=== PATIENT | male | born 1995 | race African-American/Black ===

== ENCOUNTER 2016-03-08 23:55 | Emergency (ER) ==
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
[2016-03-09 00:38] LABS: MANUAL DIFF NEEDED? NO
[2016-03-09 00:44] LABS: BASO% 0.3 % (0.0-0.8); EOS# 0.03 X1000 (0.0-0.7); EOS% 0.4 % (0.0-10.0); HEMATOCRIT 45.7 % (42.0-52.0); HEMOGLOBIN 14.9 g/dL (14.0-18.0); LYMPH# 1.66 X1000 (1.2-3.4); LYMPH% 21.8 % (20.5-51.1); MCH 26.8 PG (27-31); MCHC 32.6 g/dL (33-37); MONO# 0.61 X1000 (0.11-0.59); MPV 11.7 FL (7.4-10.4); NEUT% 69.5 % (42.2-75.2); PLT 211 X1000 (130-400); RBC 5.57 XMIL (4.7-6.1)
[2016-03-09 01:04] LABS: AGAP 23; ALBUMIN 5.3 g/dL (3.5-5.0); ALKALINE PHOSPHATASE 91 U/L (32-122); BUN 15 mg/dL (8-22); CALCIUM 10.2 mg/dL (8.8-10.2); CHLORIDE 102 mmol/L (98-107); COSMO 296; GOT 27 U/L (10-34); GPT 13 U/L (10-44); POTASSIUM 3.4 mmol/L (3.5-5.1); SODIUM 147 mmol/L (136-145); TCO2 22 mmol/L (25-35); TOTAL BILIRUBIN 0.41 mg/dL (0.20-1.00); TOTAL PROTEIN 8.8 g/dL (6.3-8.3)
[2016-03-09 01:10] LABS: UR AMPHETAMINES QUAL NONE DETECTED (NONE DETECT); UR BARBITUATES QUAL NONE DETECTED (NONE DETECT); UR BENZODIAZEPIN QUAL NONE DETECTED (NONE DETECT); UR CANNABINOIDS QUAL PRESUMPTIVE POSITIVE (NONE DETECT); UR COCAINE QUAL NONE DETECTED (NONE DETECT); UR METHADONE QUAL NONE DETECTED (NONE DETECT); UR OPIATES QUAL NONE DETECTED (NONE DETECT); UR OXYCODONE QUAL NONE DETECTED (NONE DETECT); UR PCP QUAL NONE DETECTED (NONE DETECT)
[2016-03-09 01:58] LABS: ACETAMINOPHEN < 1.2 ug/mL (10-30)
[2016-03-09 02:08] VITALS: BP 124/77
--- NOTE | 2016-03-09 05:27 | EKG Report ---
Test Performed on : 03/09/2016 00:56:50 AM Test Reason : Suspected Overdose Blood Pressure : / mmHG Vent. Rate : 111 BPM Atrial Rate : 111 BPM P-R Int : 142 ms QRS Dur : 084 ms QT Int : 330 ms P-R-T Axes : 077 075 064 degrees QTc Int : 448 ms Sinus tachycardia. Nonspecific ST and T wave abnormality Abnormal ECG No previous ECGs available Unconfirmed Result
== END 2016-03-09 02:13 | disposition home or self-care (01) ==
LOC: EDBD → ED 23:55
DX: F12.10 Cannabis abuse, uncomplicated (principal); F19.10 Other psychoactive substance abuse, uncomplicated; F17.210 Nicotine dependence, cigarettes, uncomplicated; Z71.6 Tobacco abuse counseling
CPT/HCPCS: 51702; 80053; 85025; 93005; 99284; G0480

== ENCOUNTER 2016-03-09 23:24 | Emergency (ER) ==
[2016-03-09] MEDS ORDERED: BENADRYL IV ONE (23:27)
[2016-03-09] MEDS ORDERED: ATIVAN IV ONE (23:30)
[2016-03-09] MEDS ORDERED: BENADRYL ONE (23:33)
[2016-03-09 23:34] LABS: MANUAL DIFF NEEDED? NO
--- NOTE | 2016-03-09 23:37 | ED EKG INTERP ---
EKG Interpretation - EKG Time of EKG reading by physician:: 23:31 EKG Read and Signed by:: Saw Galarza EKG Interpretation (*Must complete 3 of following elements*): Abnormal ( borderline) Rate: 134 Rhythm: sinus tachycardia [place]: normal QRS: LVH (minimum voltage) TN Interval: normal Comments: borderline Attestation - Scribe Verification/Attestation Scribe:: Jose Manuel Giullen Acting as Scribe for:: Saw Galarza Scribe documention review:: This chart was documented by a scribe and accurately reflects the service the provider performed and the decisions made by the provider.
--- NOTE | 2016-03-09 23:43 | PROVIDER DOCUMENTATION ---
HPI-Neurological Disorder - General Chief Complaint: Seizure Stated Complaint: AMS Time Seen by Provider: 03/09/16 23:27 Source: patient Allergies/Adverse Reactions: Patient Allergies Allergy/AdvReac Type Severity Reaction Status Date / Time Penicillins Allergy Unknown Unknown Verified 03/09/16 00:22 - History of Present Illness-Neuro Nature of Presenting Problem: 20 y/o AAF c/o "muscles drawing up." He was seen at yesterday for spice use with aggressive behaviors. Denies taking anything since then, but has been having where he has muscle spasms where they contract and he has no control over them all day today, in his legs, arms and mouth. He denies spice use yesterday or today, but says that when he took the weed, he immediately became aggressive and had no control over his actions. Denies chest pain, abdominal pain, nausea, vomiting or muscle aches. Denies sob or headache, changes in vision or blurry vision. Does not really know what took place at yesterday, but from previous records they pulled some labs, Haldol 10 mg IV and he was d/c home. Review of Systems - Adult - REVIEW OF SYSTEMS - ADULT Constitutional: reports: no symptoms reported. denies: chills, fever, fatique Eyes: reports: no symptoms reported. denies: blurred vision, double vision, eye pain Ears, Nose, Mouth & Throat: reports: no symptoms reported. denies: ear pain, nose pain, throat pain Cardiovascular: reports: no symptoms reported. denies: chest pain, palpitations Respiratory: reports: no symptoms reported. denies: cough, shortness of breath , wheezing Gastrointestinal: reports: no symptoms reported. denies: abdominal pain, diarrhea, nausea, vomiting Genitourinary: reports: no symptoms reported. denies: dysuria, discharge, frequency, incontinence Musculoskeletal: reports: see HPI, muscle aches. denies: muscle weakness, neck pain Integumentary: reports: no symptoms reported. denies: rash Neurological: reports: no symptoms reported. denies: ataxia, dizziness/vertigo , headache/migraines Psychiatric: reports: no symptoms reported Endocrine: reports: no symptoms reported Hematologic/Lymphatic: reports: no symptoms reported Allergic/Immunologic: reports: no symptoms reported All Other Systems: Reviewed and Negative Past History - Adult - PAST MEDICAL HISTORY-ADULT Review of Records: reports: Old Records Reviewed, Nursing Assessment Review, Medications Reviewed, Social history reviewed & non-contributory. Major Childhood Illnesses: reports: denies history Cardiovascular: reports: denies history Respiratory: reports: denies history Gastrointestinal: reports: denies history Genitourinary: reports: denies history Musculoskeletal: reports: denies history Neurological: reports: denies history Endocrine/Immune: reports: denies history Other Conditions: reports: denies history - PRIOR SURGERIES/PROCEDURES Surgical/Procedure History: reports: appendectomy - IMMUNIZATION STATUS Childhood Immunizations: See Nurse Assessment Flu Vaccine: See Nurse Assessment - FAMILY HISTORY Family History: reviewed, not pertinent - SOCIAL HISTORY Substance Use: marijuana Physical Exam- Neurological - Physical Exam-Neuro Initial Vital Signs Reviewed: Yes General Appearance: appears well, alert, no apparent distress Eye Exam: bilateral eye: normal inspection, PERRL (slowly reactive, 3mm ), EOMI HENMT: normocephalic/atraumatic, moist mucous membranes, normal ENT inspection Head Injury: no evidence of injury Neck: non-tender, full range of motion, supple, normal inspection Respiratory: chest non-tender, lungs clear, normal breath sounds, no pleuratic chest pain, no respiratory distress, no accessory muscle use. negative: respiratory distress, decreased breath sounds, accessory muscle use, crackles, rales, rhonchi Cardiovascular: normal peripheral pulses, no edema, no gallop, no JVD, no murmur , tachycardia Abdominal Exam: normal bowel sounds, non tender, soft, no organomegaly, no pulsatile mass. negative: abdominal bruit, abnormal bowel sounds, distended, guarding, rigid, rebound, tenderness Extremity: normal gait, other (patient having obvious muscle spasms with tetany that occur then release in the face, arms and legs, lasting approx 10 seconds each) arc welder apprentice Exam: normal hearing, normal speech, PERRL Coordination/Gait: normal gait Motor/Sensory: no motor deficit, no sensory deficit Neurologic: arc welder apprentice II-XII nml as tested, no motor/sensory deficits Integumentary: normal color, normal turgor, warm/dry Psych/Mental Status: AL, normal mood/affect, normal thought content, normal thought process, oriented x 3 - Glascow Coma Scale Best Eye Response: (4) open spontaneously Best Verbal Response: (5) oriented Best Motor Response: (6) obeys commands Progress - PLAN OF CARE/RESULTS Progress/Plan/Lab Results: Vital Signs Temp Pulse Resp BP Pulse Ox 03/10/16 00:55 129 H 28 H 167/86 99 03/09/16 23:37 133 H 20 158/88 98 03/09/16 23:26 98.6 F 145 H 36 H 134/82 99 Penicillins Allergy (Unknown, Verified 03/09/16 00:22) Unknown No Home Medications 03/09/16 Laboratory 03/10/16 03/10/16 03/09/16 00:45 00:45 23:28 WBC 5.90 RBC 5.45 Hgb 14.5 Hct 43.3 MCV 79.4 L MCH 26.6 L MCHC 33.5 RDW Std Deviation 13.0 Plt Count 218 MPV 11.6 H Immature Gran % (Auto) 0.0 Neut % (Auto) 60.3 Lymph % (Auto) 26.8 [place] % (Auto) 12.5 H Eos % (Auto) 0.2 Baso % (Auto) 0.2 Immature Gran # (Auto) 0.00 Neut # (Auto) 3.56 Lymph # (Auto) 1.58 [place] # (Auto) 0.74 H Eos # (Auto) 0.01 Baso # (Auto) 0.01 Sodium Potassium Chloride Carbon Dioxide Anion Gap BUN Creatinine Estimated GFR/1.73 m2 BUN/Creatinine Ratio Glucose Calculated Osmolality Calcium Total Bilirubin AST ALT Alkaline Phosphatase Creatine Kinase Total Protein Albumin Globulin Albumin/Globulin Ratio Urine Source VOIDED Urine Color YELLOW Urine Clarity CLEAR Urine pH 6.5 Ur Specific Raymond 1.020 Urine Protein 1+(30 mg/dL) A Urine Ketones NEGATIVE Urine Blood NEGATIVE Urine Nitrite NEGATIVE Urine Bilirubin NEGATIVE Urine Urobilinogen 1+(1 mg/dL) Urine Microscopic RBC <10 Urine WBC TRACE A Urine Microscopic WBC <10 Ur Epithelial Cells <10 Urine Bacteria 3+ Urine Glucose TRACE(50 mg/dL) A Urine Opiates Screen NONE DETECTED Ur Oxycodone Screen NONE DETECTED Urine Methadone Screen NONE DETECTED Ur Barbituates Screen NONE DETECTED Ur Tricyclics Screen NONE DETECTED Ur Phencyclidine Scrn NONE DETECTED Ur Amphetamines Screen NONE DETECTED U Methamphetamines Scrn NONE DETECTED Urine MDMA Screen NONE DETECTED U Benzodiazepines Scrn NONE DETECTED Urine Cocaine Screen NONE DETECTED U Cannabinoids Screen PRESUMPTIVE POSITIVE A 03/09/16 23:28 WBC RBC Hgb Hct MCV MCH MCHC RDW Std Deviation Plt Count MPV Immature Gran % (Auto) Neut % (Auto) Lymph % (Auto) [place] % (Auto) Eos % (Auto) Baso % (Auto) Immature Gran # (Auto) Neut # (Auto) Lymph # (Auto) [place] # (Auto) Eos # (Auto) Baso # (Auto) Sodium 139 Potassium 3.8 Chloride 102 Carbon Dioxide 24 L Anion Gap 13 BUN 10 Creatinine 1.1 Estimated GFR/1.73 m2 > 60 BUN/Creatinine Ratio 9 Glucose 158 H Calculated Osmolality 280 Calcium 9.6 Total Bilirubin 0.50 AST 36 H ALT 13 Alkaline Phosphatase 85 Creatine Kinase 1271 H Total Protein 8.1 Albumin 4.7 Globulin 3.0 Albumin/Globulin Ratio 1.0 Urine Source Urine Color Urine Clarity Urine pH Ur Specific Raymond Urine Protein Urine Ketones Urine Blood Urine Nitrite Urine Bilirubin Urine Urobilinogen Urine Microscopic RBC Urine WBC Urine Microscopic WBC Ur Epithelial Cells Urine Bacteria Urine Glucose Urine Opiates Screen Ur Oxycodone Screen Urine Methadone Screen Ur Barbituates Screen Ur Tricyclics Screen Ur Phencyclidine Scrn Ur Amphetamines Screen U Methamphetamines Scrn Urine MDMA Screen U Benzodiazepines Scrn Urine Cocaine Screen U Cannabinoids Screen Orders Category Date Time Status CBC WITH ELECTRONIC DIFF [HEME] Stat Lab 03/09/16 23:28 Completed CK TOTAL [CHEM] Stat Lab 03/09/16 23:28 Completed COMPREHENSIVE METABOLIC PANEL [CHEM] Stat Lab 03/09/16 23:28 Completed UDS [URINE DRUG SCREEN PL] Stat Lab 03/10/16 00:[address] W/POSS RFLX CULT [URINALYSIS] Stat Lab 03/10/16 00:45 Completed URINE CULTURE [RM] Routine Lab 03/10/16 01:30 Ordered 0.9% Sodium Chloride Inj [Ns] 1,000 ml Med 03/09/16 23:46 Discontinued IV 999 mls/hr 0.9% Sodium Chloride Inj [Ns] 1,000 ml Med 03/10/16 00:45 Active IV 999 mls/hr 0.9% Sodium Chloride Inj [Ns] 1,000 ml Med 03/10/16 01:21 Active IV 999 mls/hr Diphenhydramine [Benadryl] Med 03/09/16 23:33 Discontinued 50 mg .ROUTE .STK-MED ONE Diphenhydramine [Benadryl] Med 03/09/16 23:27 Discontinued 50 mg IV NOW ONE Labetalol Med 03/10/16 00:01 Discontinued 10 mg IV NOW ONE Lorazepam [Ativan] Med 03/10/16 00:02 Discontinued 1 mg IV NOW ONE Lorazepam [Ativan] Med 03/10/16 00:14 Discontinued 1 mg IV NOW ONE Lorazepam [Ativan] Med 03/09/16 23:30 Discontinued 2 mg IV NOW ONE EKG [EKG] Stat Ther 03/09/16 23:30 Ordered Labetolol was not given Discussed patient with Dr. Mcgrath who reviewed chart, labs and vitals. Agrees with treatment, disposition and plan - REASSESSMENT Reassessment #1 Time Reassessed: 01:18 (HR to 110's in the room. He is now asleep, no longer having dystonic reactions. Family members to bedisde. He was just released from being in long term for 3 years this past (2 days ago). They did not know he was even taking drugs, and don't know if he could have done anything today) Status: improving Departure - Departure Time of Disposition Order: 01:34 DIAGNOSIS: Substance abuse, Acute dystonic reaction due to drugs Disposition: HOME 01 Certified Medical Emergency: Emergent Condition: Stable Additional Instructions: Refrain from taking any more drugs ED Follow Up Instructions: You have been treated by a care provider in the Emergency Department. These instructions are being provided to you so you can have an understanding of how to care for yourself upon discharge. Upon discharge from the Emergency Department, you are responsible for making arrangements for follow-up care by a physician of your choice. Take all prescribed medications as directed. Return to the Emergency Department immediately for any new or worsening symptoms. You may call the Physician Referral phone number at [phone] to obtain a list of Physicians who are taking new patients. . Prescriptions: Diphenhydramine [Benadryl] 25 mg PO Q4-6H PRN PRN #20 capsule PRN Reason: Itching Referrals: Davey Julio MD [STAFF PHYSICIAN] - None,PCP [Primary Care Provider] - Forms: Return to School/Parent Work Attestation - Physician/ Mid-level Attestation Patient care was provided by Mid-level provider (MACHINERY MECHANIC/PA):: Yes Mid-level provider:: Mary Rubio Mid-level documentation review:: The Mid-level provider documentation, treatment plan and medical decision making was reviewed by the physician who agrees with all treatment and medical decision making by the MLP.
[2016-03-09] MEDS ORDERED: NS 1,000 ML IV ONE (23:46)
[2016-03-09 23:48] LABS: BASO% 0.2 % (0.0-0.8); EOS# 0.01 X1000 (0.0-0.7); EOS% 0.2 % (0.0-10.0); HEMATOCRIT 43.3 % (42.0-52.0); HEMOGLOBIN 14.5 g/dL (14.0-18.0); LYMPH# 1.58 X1000 (1.2-3.4); LYMPH% 26.8 % (20.5-51.1); MCH 26.6 PG (27-31); MCHC 33.5 g/dL (33-37); MCV 79.4 FL (81-99); MONO# 0.74 X1000 (0.11-0.59); MONO% 12.5 % (1.7-9.3); MPV 11.6 FL (7.4-10.4); NEUT% 60.3 % (42.2-75.2); PLT 218 X1000 (130-400); RBC 5.45 XMIL (4.7-6.1)
[2016-03-10] LABS: AGAP 13; ALBUMIN 4.7 g/dL (3.5-5.0); ALKALINE PHOSPHATASE 85 U/L (32-122); BUN 10 mg/dL (8-22); CALCIUM 9.6 mg/dL (8.8-10.2); CHLORIDE 102 mmol/L (98-107); COSMO 280; GOT 36 U/L (10-34); GPT 13 U/L (10-44); POTASSIUM 3.8 mmol/L (3.5-5.1); SODIUM 139 mmol/L (136-145); TCO2 24 mmol/L (25-35); TOTAL PROTEIN 8.1 g/dL (6.3-8.3)
[2016-03-10] MEDS ORDERED: LABETALOL IV ONE (00:01)
[2016-03-10] MEDS ORDERED: ATIVAN IV ONE ×2 (00:02→00:14)
[2016-03-10] MEDS ORDERED: NS 1,000 ML IV ONE ×2 (00:45→01:21)
[2016-03-10 00:55] LABS: URINE SOURCE VOIDED
[2016-03-10 01:18] LABS: UR AMPHETAMINES QUAL NONE DETECTED (NONE DETECT); UR BARBITUATES QUAL NONE DETECTED (NONE DETECT); UR BENZODIAZEPIN QUAL NONE DETECTED (NONE DETECT); UR CANNABINOIDS QUAL PRESUMPTIVE POSITIVE (NONE DETECT); UR COCAINE QUAL NONE DETECTED (NONE DETECT); UR MDMA QUAL NONE DETECTED (NONE DETECT); UR METHADONE QUAL NONE DETECTED (NONE DETECT); UR METHAMPHETAMINE QUAL NONE DETECTED (NONE DETECT); UR OPIATES QUAL NONE DETECTED (NONE DETECT); UR OXYCODONE QUAL NONE DETECTED (NONE DETECT); UR PCP QUAL NONE DETECTED (NONE DETECT); UR TCA QUAL NONE DETECTED (NONE DETECT)
[2016-03-10 01:28] LABS: BILIRUBIN URINE NEGATIVE (NEGATIVE); BLOOD URINE NEGATIVE (NEGATIVE); CLARITY CLEAR (CLEAR); COLOR YELLOW; LEUKOCYTES URINE TRACE (NEGATIVE); NITRITE URINE NEGATIVE (NEGATIVE); PH URINE 6.5; PROTEIN URINE 1+(30 mg/dL) mg/dL (NEGATIVE); UROBILINOGEN URINE 1+(1 mg/dL)
[2016-03-10 01:29] LABS: URINE RBC <10 /HPF (<10); URINE WBC <10 /HPF (<10)
[2016-03-10 01:30] LABS: URINE CULTURE PL NEEDED? YES; URINE EPITHELIAL CELLS <10 /HPF (<10)
[2016-03-10 02:35] VITALS: BP 103/47
--- NOTE | 2016-03-10 05:27 | EKG Report ---
Test Performed on : 03/09/2016 11:31:16 PM Test Reason : ER9 Blood Pressure : / mmHG Vent. Rate : 134 BPM Atrial Rate : 134 BPM P-R Int : 160 ms QRS Dur : 076 ms QT Int : 322 ms P-R-T Axes : 072 065 060 degrees QTc Int : 480 ms Sinus tachycardia. Minimal voltage criteria for LVH, may be normal variant Borderline ECG When compared with ECG of 09-MAR-2016 00:56, (Unconfirmed) ST now depressed in Inferior leads ST now depressed in Anterior leads Unconfirmed Result
== END 2016-03-10 02:32 | disposition home or self-care (01) ==
LOC: P.ED 23:24
DX: T40.7X1A Poisoning by cannabis (derivatives), accidental (unintentional), initial encounter (principal); F12.90 Cannabis use, unspecified, uncomplicated; F19.10 Other psychoactive substance abuse, uncomplicated; R41.82 Altered mental status, unspecified; M62.838 Other muscle spasm; M79.1 Myalgia; R29.0 Tetany
CPT/HCPCS: 80053; 81001; 82550; 85025; 87088; 93005; 96361; 96374; 96375; 96376; J1200; J2060; J7030

== ENCOUNTER 2016-05-16 01:45 | Emergency (ER) ==
[2016-05-16 01:54] VITALS: BP 125/69
[2016-05-16] MEDS ORDERED: TYLENOL PO ONE (02:02)
[2016-05-16] MEDS ORDERED: CLEOCIN PO ONE (02:12)
--- NOTE | 2016-05-16 02:17 | PROVIDER DOCUMENTATION ---
[facility]-EE General - General Source: patient - History of Present Illness-EENT General EE Location: reports: throat Quality of Pain: reports: aching Severity: reports: moderate, severe Onset/Duration: reports: 2 days ago, 1 week ago (discharge) Timing: reports: still present Prearrival Treatment: Initiated no prearrival treatment Associated Symptoms: reports: sore throat. denies: cough, nasal congestion/ drainage <Saw Mahoney - Last Filed: 05/16/16 02:13> <Addison Horan - Last Filed: 05/16/16 02:50> - General Chief Complaint: Sore Throat Stated Complaint: SORE THROAT Time Seen by Provider: 05/16/16 02:04 Allergies/Adverse Reactions: Patient Allergies Allergy/AdvReac Type Severity Reaction Status Date / Time Penicillins Allergy Unknown Unknown Verified 05/16/16 01:54 Home Medications: Home Medication List Medication Instructions Recorded Confirmed Last Taken Type Clindamycin [Cleocin] 300 mg PO Q6HR #40 capsule 05/16/16 Unknown Rx Clotrimazole/Bmethasone Cream 1 applicatn TOP BID #1 tube 05/16/16 Unknown Rx [Lotrisone Cream] - History of Present Illness-EE General Nature of Presenting Problem: 20 y/o M complains of sore throat for 2 days and discharge from his penis with dry scaly skin on penis head (Saw Mahoney) Review of Systems - Adult - REVIEW OF SYSTEMS - ADULT Constitutional: reports: fever. denies: chills Eyes: reports: no symptoms reported Ears, Nose, Mouth & Throat: reports: throat pain. denies: sinus problem Cardiovascular: reports: no symptoms reported Respiratory: denies: cough, shortness of breath, wheezing Gastrointestinal: denies: abdominal pain, nausea, vomiting Genitourinary: reports: discharge, other (sore on penis). denies: flank pain Musculoskeletal: reports: no symptoms reported Integumentary: reports: no symptoms reported Neurological: reports: no symptoms reported Psychiatric: reports: no symptoms reported Endocrine: reports: no symptoms reported Hematologic/Lymphatic: reports: no symptoms reported Allergic/Immunologic: reports: no symptoms reported All Other Systems: Reviewed and Negative <Saw Mahoney - Last Filed: 05/16/16 02:13> Past History - Adult - PAST MEDICAL HISTORY-ADULT Review of Records: reports: Old Records Reviewed, Nursing Assessment Review, Medications Reviewed Major Childhood Illnesses: reports: denies history Cardiovascular: reports: denies history Respiratory: reports: denies history Gastrointestinal: reports: denies history Genitourinary: reports: denies history Musculoskeletal: reports: denies history Neurological: reports: denies history Endocrine/Immune: reports: denies history Other Conditions: reports: denies history - PRIOR SURGERIES/PROCEDURES Surgical/Procedure History: reports: appendectomy - IMMUNIZATION STATUS Childhood Immunizations: See Nurse Assessment Flu Vaccine: See Nurse Assessment - FAMILY HISTORY Family History: reviewed, not pertinent <Saw Mahoney - Last Filed: 05/16/16 02:13> Physical Exam- EENT - Physical Exam EENT Initial Vital Signs Reviewed: Yes General Appearance: appears well, alert, no apparent distress Eye Exam: bilateral eye: normal inspection, PERRL, EOMI Nasal Exam: normal inspection. negative: active bleeding Throat Exam: normal mouth inspection, pharynx swelling, tonsillar exudate Neck: non-tender, full range of motion, supple, normal inspection Respiratory: lungs clear, normal breath sounds Cardiovascular: normal peripheral pulses, regular rate, rhythm Abdominal Exam: normal bowel sounds, non tender, soft Extremity: normal range of motion, non-tender, normal gait, normal inspection Integumentary: normal color, normal turgor, warm/dry <Saw Mahoney - Last Filed: 05/16/16 02:13> Progress <Saw Mahoney - Last Filed: 05/16/16 02:13> <Addison Horan - Last Filed: 05/16/16 02:50> - PLAN OF CARE/RESULTS Progress/Plan/Lab Results: Orders Category Date Time Status DIRECT STREP PL Stat Lab 05/16/16 01:50 Received GRAM STAIN AND WET PREP [DIREX] Stat Lab 05/16/16 02:[address] Stat Lab 05/16/16 01:50 Stop Req Acetaminophen [Tylenol] Med 05/16/16 02:02 Discontinued 650 mg PO NOW ONE Clindamycin [Cleocin] Med 05/16/16 02:12 Discontinued 450 mg PO NOW ONE Vital Signs Temp Pulse Resp BP Pulse Ox 05/16/16 01:49 101.5 F H 120 H 18 125/69 100 Penicillins Allergy (Unknown, Verified 05/16/16 01:54) Unknown Clindamycin [Cleocin] 300 mg PO Q6HR #40 capsule 05/16/16 Clotrimazole/Bmethasone Cream [Lotrisone Cream] 1 applicatn TOP BID #1 tube (Saw Mahoney) Departure <Saw Mahoney - Last Filed: 05/16/16 02:13> - Departure Time of Disposition Order: 02:46 Certified Medical Emergency: Emergent <Addison Horan - Last Filed: 05/16/16 02:50> - Departure DIAGNOSIS: Strep pharyngitis, Balanitis Disposition: HOME 01 Condition: Fair Additional Instructions: WE WILL CALL WITH URINE RESULTS ED Follow Up Instructions: You have been treated by a care provider in the Emergency Department. These instructions are being provided to you so you can have an understanding of how to care for yourself upon discharge. Upon discharge from the Emergency Department, you are responsible for making arrangements for follow-up care by a physician of your choice. Take all prescribed medications as directed. Return to the Emergency Department immediately for any new or worsening symptoms. You may call the Physician Referral phone number at [phone] to obtain a list of Physicians who are taking new patients. Prescriptions: Clindamycin [Cleocin] 300 mg PO Q6HR #40 capsule Clotrimazole/Bmethasone Cream [Lotrisone Cream] 1 applicatn TOP BID #1 tube Referrals: Becky Mathews MD [STAFF PHYSICIAN] - Forms: Return to School/Parent Work Instructions: Betamethasone; Clotrimazole skin cream, Clindamycin capsules Attestation - Scribe Verification/Attestation Scribe:: Saw Mahoney Acting as Scribe for:: Addison Horan Scribe documention review:: This chart was documented by a scribe and accurately reflects the service the provider performed and the decisions made by the provider. <Saw Mahoney - Last Filed: 05/16/16 02:13> Physician Attestation
[2016-05-16] MEDS ORDERED: ZITHROMAX PO ONE (02:49)
== END 2016-05-16 03:05 | disposition home or self-care (01) ==
LOC: P.ED 01:45
DX: J02.0 Streptococcal pharyngitis (principal); N48.1 Balanitis; R36.9 Urethral discharge, unspecified; R50.9 Fever, unspecified; L98.9 Disorder of the skin and subcutaneous tissue, unspecified
CPT/HCPCS: 87210; 87430; 87804

== ENCOUNTER 2016-05-17 09:02 | Emergency (ER) ==
[2016-05-17 09:10] VITALS: BP 136/72
--- NOTE | 2016-05-17 09:21 | PROVIDER DOCUMENTATION ---
HPI-Rash/Wound/ReCheck - General Chief Complaint: Rash Stated Complaint: ALLERGIC REACTION Time Seen by Provider: 05/17/16 09:14 Source: patient Allergies/Adverse Reactions: Allergies Allergy/AdvReac Type Severity Reaction Status Date / Time Penicillins Allergy Unknown Unknown Verified 05/16/16 01:54 Home Medications: Home Medication List Medication Instructions Recorded Confirmed Last Taken Type Clindamycin [Cleocin] 300 mg PO Q6HR #40 capsule 05/16/16 Unknown Rx Clotrimazole/Bmethasone Cream 1 applicatn TOP BID #1 tube 05/16/16 Unknown Rx [Lotrisone Cream] - History of Present Illness-Dermatology Nature of Presenting Problem: patient is a 20 y/o M that presents to the ER with rash to upper body and wrist. Unsure when symptoms started. patient was treated for Scabies in 2016 and feels it could have return. denies fever/chills, cough, sore throat, or body aches. No new soaps, lotions, or medications Location: reports: upper extremity (wrists), torso Quality: reports: itchy Severity: reports: mild Onset/Duration: reports: unsure Timing: reports: still present, constant Context/Associated Symptoms: reports: rash. denies: fever, hives, lesion, nasal congestion Locality of Occurance: Home Similar Symptoms Previously?: Yes Recently seen or treated by another doctor?: No Review of Systems - Adult - REVIEW OF SYSTEMS - ADULT Constitutional: denies: chills, fever Eyes: reports: no symptoms reported Ears, Nose, Mouth & Throat: denies: ear pain, hoarseness, throat pain, throat swelling Cardiovascular: reports: no symptoms reported Respiratory: denies: cough, shortness of breath, wheezing Gastrointestinal: denies: abdominal pain, diarrhea, nausea, vomiting Genitourinary: reports: no symptoms reported Musculoskeletal: reports: no symptoms reported Integumentary: reports: itching, rash. denies: hives, skin sores/ulcer, skin thickening Neurological: reports: no symptoms reported Psychiatric: reports: no symptoms reported Endocrine: reports: no symptoms reported Hematologic/Lymphatic: reports: no symptoms reported Allergic/Immunologic: reports: no symptoms reported All Other Systems: Reviewed and Negative Past History - Adult - PAST MEDICAL HISTORY-ADULT Review of Records: reports: Old Records Reviewed, Nursing Assessment Review, Medications Reviewed Genitourinary: reports: denies history Musculoskeletal: reports: denies history Neurological: reports: denies history Endocrine/Immune: reports: denies history Other Conditions: reports: denies history - PRIOR SURGERIES/PROCEDURES Surgical/Procedure History: reports: appendectomy - IMMUNIZATION STATUS Childhood Immunizations: See Nurse Assessment Flu Vaccine: See Nurse Assessment - FAMILY HISTORY Family History: reviewed, not pertinent - SOCIAL HISTORY Smoking: cigarettes, less than 1 pack/day Alcohol Use Frequency: occasionally Living Situation: family Physical Exam-General - PHYSICAL EXAM-ADULT Initial Vital Signs Reviewed: Yes - CONSTITUTIONAL General Appearance: alert, no apparent distress - EYES Eyes: PERRL/EOMI, pink conjunctivae - HEAD, EARS, NOSE, MOUTH & THROAT HENMT: normocephalic/atraumatic, moist mucous membranes, normal ENT inspection - NECK Neck: full range of motion, normal inspection - RESPIRATORY Respiratory: lungs clear, normal breath sounds, no respiratory distress, no accessory muscle use - CARDIOVASCULAR Cardiovascular: regular rate, rhythm, no edema, no murmur - GASTROINTESTINAL (ABDOMEN) Abdominal Exam: normal bowel sounds, non tender, soft - MUSCULOSKELETAL Extremity: normal range of motion, no pedal edema, normal capillary refill - SKIN Integumentary: warm/dry, rash (fine dry rash to face and wrists). negative: embolic lesions, erythema, zoster-like rash - NEUROLOGIC Neurologic: grossly normal, no motor/sensory deficits - PSYCHIATRIC Psych/Mental Status: normal mood/affect, normal thought content, normal thought process, oriented x 3 Progress - PLAN OF CARE/RESULTS Progress/Plan/Lab Results: Vital Signs Temp Pulse Resp BP Pulse Ox 05/17/16 09:06 97.9 F 95 H 18 136/72 100 Penicillins Allergy (Unknown, Verified 05/16/16 01:54) Unknown Clindamycin [Cleocin] 300 mg PO Q6HR #40 capsule 05/16/16 Clotrimazole/Bmethasone Cream [Lotrisone Cream] 1 applicatn TOP BID #1 tube pt will be d/c home f/u with pcp and , RX given, pt was clinically stable Departure - Departure Time of Disposition Order: 09:18 DIAGNOSIS: Acute urticaria Disposition: HOME 01 Certified Medical Emergency: Emergent Condition: Stable Additional Instructions: ED Follow Up Instructions: You have been treated by a care provider in the Emergency Department. These instructions are being provided to you so you can have an understanding of how to care for yourself upon discharge. Upon discharge from the Emergency Department, you are responsible for making arrangements for follow-up care by a physician of your choice. Take all prescribed medications as directed. Return to the Emergency Department immediately for any new or worsening symptoms. You may call the Physician Referral phone number at [phone] to obtain a list of Physicians who are taking new patients. Referrals: None,PCP [Primary Care Provider] - Rolly Rivera [NON-STAFF] - Call for Appoint. 1-2days Instructions: Hives, [id number] Attestation - Scribe Verification/Attestation Scribe:: Raj Tobias Acting as Scribe for:: Lindsey Horan Scribe documention review:: This chart was documented by a scribe and accurately reflects the service the provider performed and the decisions made by the provider. Physician Attestation - Physician Attestation I, the provider, attest to the following statement:: Lindsey Horan Physician documentation Attestation:: This documentation recorded by the scribe accurately reflects the service I personally performed and the decisions made by me.
== END 2016-05-17 09:33 | disposition home or self-care (01) ==
LOC: P.ED 09:02
DX: L50.9 Urticaria, unspecified (principal); R21 Rash and other nonspecific skin eruption; L29.9 Pruritus, unspecified; F17.210 Nicotine dependence, cigarettes, uncomplicated